=== PATIENT | female | born 1985 | race Caucasian/White ===

== ENCOUNTER → 2021-03-27 | Outpatient (CLI) | payer OTHER ==
[~2021-03-27] MED LIST: APAP500; HYDROCODON-ACE1 EAC7 PO; MIRALAX17 GM PO; NF PO; ONDANSETRON HCL4 M2 PO; PRENATAL PO; TYLENOL325 MG PO; VITAMIN D3400 UNI1 PO
[2021-03-27 11:45] LABS: ABSOLUTE NEUTROPHILS 6.2 thou/uL (1.4-8.2); EOSINOPHILS 2.2 % (0.0-3.0); HEMATOCRIT 40.8 % (37.0-47.0); HEMOGLOBIN 13.7 gm/dL (12.0-15.0); LYMPHOCYTES 27.6 % (24.0-44.0); MCH 29.8 pg (26.0-34.0); MCHC 33.6 g/dL (28.0-37.0); MCV 88.7 fL (80.0-100.0); MONOCYTES 4.8 % (1.0-8.0); PLATELET COUNT 291 thou/uL (150-400); POLYS 64.4 % (36.0-66.0); RDW 15.2 % (10.5-14.5); WBC 9.7 thou/uL (4.0-11.0)
== END ==
LOC: LAB 11:03
PROVIDERS: ATTEND Internal Medicine
DX: D72.828 Other elevated white blood cell count (principal)